=== PATIENT | female | born 1985 | race Asian ===

== ENCOUNTER 2024-02-15 08:59 | Inpatient (IN) | payer OTHER ==
[~2024-02-15] VITALS: Ht 149.9 cm; Wt 63.0 kg
[2024-02-15 09:34] LABS: BASOPHILS # (AUTO) 0.1 K/uL (0.00-0.22); BASOPHILS % (AUTO) 0.9 % (0.0-2.0); EOSINOPHILS # (AUTO) 0.1 K/uL (0-0.4); EOSINOPHILS % (AUTO) 1.1 % (0.0-4.0); HEMATOCRIT 41.1 % (36-48); HEMOGLOBIN 14.2 g/dL (12.0-16.0); LYMPHOCYTES # (AUTO) 1.6 K/uL (2.5-16.5); LYMPHOCYTES % (AUTO) 18.7 % (20.5-51.1); MEAN CORPUSCULAR HEMOGLOBIN 32 pg (27-31); MEAN CORPUSCULAR HGB CONC 35 g/dL (33-37); MEAN CORPUSCULAR VOLUME 93.4 fL (80-94); MONOCYTES # (AUTO) 0.4 K/uL (0.8-1.0); MONOCYTES % (AUTO) 5.1 % (1.7-9.3); NEUTROPHILS # (AUTO) 6.3 K/uL (1.8-7.7); NEUTROPHILS % (AUTO) 74.2 % (42.2-75.2); PLATELET COUNT (AUTO) 162 K/uL (140-450); RED CELL DISTRIBUTION WIDTH 13.3 % (11.6-13.7); WHITE BLOOD COUNT (AUTO) 8.5 K/uL (4.8-10.8)
[2024-02-15 09:38] LABS: BILIRUBIN,URINE NEGATIVE (NEGATIVE); BLOOD, URINE TRACE-I (NEGATIVE); LEUKOCYTE ESTERASE ,URINE TRACE (NEGATIVE); NITRITE, URINE NEGATIVE (NEGATIVE); PROTEIN,URINE NEGATIVE (NEGATIVE); UGLUCOSE NEGATIVE (NEGATIVE); UROBILINOGEN,URINE 0.2 EU/dL (0.2 - 1)
[2024-02-15 09:41] LABS: APPEARANCE,URINE CLEAR (CLEAR); COLOR,URINE YELLOW (YELLOW)
[2024-02-15 09:48] LABS: BACTERIA,URINE >30 (MANY) /HPF (None Seen); SQUAMOUS EPITHELIAL CELL,UR 4-10 (MOD) /LPF (0-3 (FEW))
[2024-02-15 09:52] LABS: INR 0.85 (0.8-1.2); PARTIAL THROMBOPLASTIN TIME 25.6 secs (22-35.6)
[2024-02-15] MEDS: LACTATED RINGERS 1,000 ML IV SCH (09:53)
[2024-02-15 09:54] LABS: ALBUMIN 3.1 g/dL (3.4-5.0); ANION GAP 15.1 (8-16); CALCIUM 10.8 mg/dL (8.5-10.1); CARBON DIOXIDE 20.2 mmol/L (21-32); CREATININE 0.7 mg/dL (0.6-1.3); POTASSIUM 4.3 mmol/L (3.5-5.1); TOTAL BILIRUBIN 0.3 mg/dL (0.0-1.0); TOTAL PROTEIN, SERUM 7.6 g/dL (6.4-8.2)
[2024-02-15] MEDS ORDERED: LACTATED RINGERS 500 ML IV SCH (10:15)
[2024-02-15] MEDS ORDERED: PRETAB PO (10:19)
[2024-02-15] MEDS ORDERED: MORPHINE PRES FREE 10 MG/10 ML AMP IV ONE (12:01)
[2024-02-15] MEDS ORDERED: ACETAMINOPHEN EXTRA STRENGTH 500 MG TAB ONE (12:04)
[2024-02-15] MEDS ORDERED: CITRIC ACID/SODIUM CITRATE 30 ML UDC ONE (12:05)
[2024-02-15] MEDS: CITRIC ACID/SODIUM CITRATE 30 ML UDC PO SCH (12:10)
[2024-02-15] MEDS: ACETAMINOPHEN EXTRA STRENGTH 500 MG TAB PO SCH (12:14)
[2024-02-15] MEDS ORDERED: METHYLERGONOVINE 0.2 MG/ML AMP IM PRN (12:20)
[2024-02-15] MEDS ORDERED: TEMAZEPAM 15 MG CAP PO PRN (12:20)
[2024-02-15] MEDS ORDERED: BLOOD GLUCOSE MONITORING 1 DEV DEV FS SCH (12:35)
[2024-02-15] MEDS ORDERED: HYDROmorphone 1 MG/ML AMP IVP PRN (12:35)
[2024-02-15] MEDS ORDERED: ONDANSETRON 4 MG/2 ML VIAL IVP PRN (12:35)
[2024-02-15] MEDS ORDERED: diphenhydrAMINE 50 MG/ML VIAL IVP PRN ×2 (12:35→20:30)
[2024-02-15] MEDS ORDERED: LACTATED RINGERS 1,000 ML IV SCH (12:35)
[2024-02-15] MEDS ORDERED: KETOROLAC 30 MG/ML VIAL IVP PRN (19:00)
[2024-02-15] MEDS: ONDANSETRON 4 MG/2 ML VIAL IVP PRN (20:49)
[2024-02-15] MEDS: DOCUSATE SOD/SENNA 50/8.6 MG 1 TAB PO SCH (20:55)
[2024-02-16] MEDS: OXYTOCIN/0.9 % SODIUM CHLORIDE 500 ML IV SCH (03:02)
[2024-02-16] MEDS: KETOROLAC 30 MG/ML VIAL IVP PRN (05:38)
[2024-02-16 07:03] LABS: BASOPHILS % (AUTO) 0.4 % (0.0-2.0); EOSINOPHILS % (AUTO) 0.1 % (0.0-4.0); HEMATOCRIT 32.8 % (36-48); HEMOGLOBIN 11.5 g/dL (12.0-16.0); LYMPHOCYTES # (AUTO) 1.5 K/uL (2.5-16.5); LYMPHOCYTES % (AUTO) 11.7 % (20.5-51.1); MEAN CORPUSCULAR HEMOGLOBIN 33 pg (27-31); MEAN CORPUSCULAR HGB CONC 35 g/dL (33-37); MEAN CORPUSCULAR VOLUME 93.2 fL (80-94); MONOCYTES # (AUTO) 0.5 K/uL (0.8-1.0); MONOCYTES % (AUTO) 4.1 % (1.7-9.3); NEUTROPHILS # (AUTO) 10.7 K/uL (1.8-7.7); NEUTROPHILS % (AUTO) 83.7 % (42.2-75.2); PLATELET COUNT (AUTO) 142 K/uL (140-450); RED BLOOD CELL COUNT(AUTO) 3.52 MIL/uL (4.20-5.40); RED CELL DISTRIBUTION WIDTH 13.3 % (11.6-13.7); WHITE BLOOD COUNT (AUTO) 12.8 K/uL (4.8-10.8)
[2024-02-16] MEDS: SIMETHICONE 80 MG TAB.CHEW PO PRN (17:51)
[2024-02-16] MEDS: oxyCODONE/APAP 5/325 MG 1 TAB TAB PO PRN (17:53)
[2024-02-17] MEDS: oxyCODONE/APAP 5/325 MG 1 TAB TAB PO PRN (18:30)
[2024-02-18] MEDS: IBUPROFEN 800 MG TAB PO PRN (14:25)
== END 2024-02-18 15:30 | disposition home or self-care (01) | DRG 787 ==
LOC: UNDOADMOB 08:59 → MLD 08:59 → OBSVTOIN 10:14 → INTOOBSV 10:14 → MLD 14:00 → MFCC 14:00
PROVIDERS: ADMIT Obstetrics & Gynecology; ATTEND Obstetrics & Gynecology
PROC: 10D00Z1 Extraction of Products of Conception, Low, Open Approach (ICD-10-PCS; principal; 2024-02-15 12:00)
DX: O34.211 Maternal care for low transverse scar from previous cesarean delivery (principal); D62 Acute posthemorrhagic anemia; Z20.822 Contact with and (suspected) exposure to COVID-19; Z3A.38 38 weeks gestation of pregnancy; Z37.0 Single live birth
CPT/HCPCS: 36415; 80053; 81001; 85025; 85610; 85730; 86592; 86886; 86900; 86901; 87086; 87186; J0690; J0696; J1885; J2270; J2405; J2590; J7060